=== PATIENT | male | born 1995 | race Caucasian/White ===

== ENCOUNTER 2018-01-31 11:14 | Day surgery (SDC) | payer OTHER ==
[~2018-01-31 11:14] MED LIST: CEFAZOLIN 2 GM/50 ML (PMX) 50 ML IVPB; SOD CHLORIDE 0.9% 1,000 ML IV
[2018-01-31] MEDS ORDERED: SUCCINYLCHOLINE CHLORIDE 100 MG/5 ML SYG IV (14:02)
[2018-01-31] MEDS ORDERED: NEOSTIGMINE 3 MG/3 ML SYRINGE ×2 (14:02→15:36)
[2018-01-31] MEDS ORDERED: GLYCOPYRROLATE 0.4 MG INJ (14:02)
[2018-01-31] MEDS ORDERED: LIDOCAINE 2% (SDV) 5 ML INJ (14:02)
[2018-01-31] MEDS ORDERED: ROCURONIUM 50 MG INJ (14:02)
[2018-01-31] MEDS ORDERED: PROPOFOL 20 ML (14:02)
[2018-01-31] MEDS ORDERED: MEPERIDINE 100 MG INJ (14:03)
[2018-01-31] MEDS ORDERED: POLYMYXIN/BACITRACIN 1L IRRIG (14:04)
[2018-01-31] MEDS ORDERED: CEFAZOLIN 1 GM INJ (14:10)
[2018-01-31] MEDS ORDERED: LABETALOL HCL 20MG INJ IV (14:30)
[2018-01-31] MEDS ORDERED: hydrALAzine 20 MG INJ IV (14:30)
[2018-01-31] MEDS ORDERED: HYDROmorphONE (0.2 MG/ML) 10ML SYG IV ×2 (14:30)
[2018-01-31] MEDS ORDERED: ONDANSETRON 4 MG INJ IV (14:30)
[2018-01-31] MEDS ORDERED: OXYCODONE/ACETAMINOPHEN (5/325) TAB PO ×2 (14:30)
[2018-01-31] MEDS ORDERED: MIDAZOLAM 1 MG/ML 2 ML INJ IV (14:30)
[2018-01-31] MEDS ORDERED: MEPERIDINE 25 MG INJ IV (14:30)
[2018-01-31] MEDS ORDERED: EPHEDrine SULFATE 50 MG/5 ML SYG IV (14:30)
[2018-01-31] MEDS ORDERED: DIPHENHYDRAMINE 50 MG INJ IV (14:30)
[2018-01-31] MEDS ORDERED: METOCLOPRAMIDE 10 MG INJ IV (14:30)
[2018-01-31] MEDS ORDERED: FENTAnyl 50 MCG/ML VIAL IV ×2 (14:30)
[2018-01-31] MEDS ORDERED: ONDANSETRON 4 MG INJ (14:37)
[2018-01-31] MEDS: BUPIVACAINE 0.25% (MPF) 30 ML INJ (14:50)
[2018-01-31] MEDS: HYDROmorphONE (0.2 MG/ML) 10ML SYG IV (16:41)
[2018-01-31] MEDS: FENTAnyl 50 MCG/ML VIAL IV (16:41)
[2018-01-31] MEDS: HYDROCODONE/APAP (5/325) TAB PO (16:44)
== END 2018-01-31 17:52 | disposition home or self-care (01) ==
LOC: SDS 11:14
DX: K40.01 Bilateral inguinal hernia, with obstruction, without gangrene, recurrent (principal)
CPT/HCPCS: 49521